=== PATIENT | male | born 1990 | race African-American/Black ===

== ENCOUNTER → 2017-02-20 | Day surgery (SDC) | payer MEDICAID ==
[2017-02-18 12:38] LABS: HEMATOCRIT 42.5 % (37.9-51.0); HEMOGLOBIN 14.3 g/dL (13.5-17.0); HGB HCT DIFFERENCE 0.4; MEAN CORPUSCULAR HEMOGLOBIN 30.3 pg (27.0-33.4); MEAN CORPUSCULAR HGB CONC 33.6 g/dL (32.0-36.0); MEAN CORPUSCULAR VOLUME 90 fl (80-97); RED BLOOD COUNT 4.72 10^6/uL (4.35-5.55); RED CELL DISTRIBUTION WIDTH 12.4 % (11.5-14.0); WHITE BLOOD COUNT 3.8 10^3/uL (4.0-10.5)
[~2017-02-20] MED LIST: ACETAMINOPHEN 0 ML IV ONE; ACETAMINOPHEN 325 MG TABLET PO PRN; BUPIVACAINE HCL 0.25 % INJ/PF (2.5 MG/1 ML) 30 ML VIAL ONE; BUPIVACAINE INJ/PF LIPOSOME/PF 266 MG/20 ML SDV ONE; CEFAZOLIN 1 GM/D5W RTU 1 GM/50 ML RTUPB IV PRN; HYDROMORPHONE HCL INJ/PF 2 MG/ML AMPULE ONE; LACTATED RINGERS 1000 ML IV PRN; LIDOCAINE 0.5% INJ-PF (5 MG/ML) 50 ML SDV SUBCUT PRN; MIDAZOLAM 2 MG/2 ML INJ ONE; PROPOFOL INJ 200 MG/20 ML VIAL IV ONE
[2017-02-20 14:44] VITALS: BP 107/67
== END ==
LOC: OROUT 14:17
PROVIDERS: ATTEND Surgery
DX: K40.90 Unilateral inguinal hernia, without obstruction or gangrene, not specified as recurrent (principal); Z53.9 Procedure and treatment not carried out, unspecified reason
CPT/HCPCS: 36415; 85027; J2250; J0690; J1170; S0020; C9290; J0131; J2704

== ENCOUNTER 2017-03-01 08:01 | Day surgery (SDC) | payer MEDICAID ==
[~2017-03-01 08:01] MED LIST changes: -ACETAMINOPHEN 0 ML IV ONE; -BUPIVACAINE HCL 0.25 % INJ/PF (2.5 MG/1 ML) 30 ML VIAL ONE; -BUPIVACAINE INJ/PF LIPOSOME/PF 266 MG/20 ML SDV ONE; -HYDROMORPHONE HCL INJ/PF 2 MG/ML AMPULE ONE; -MIDAZOLAM 2 MG/2 ML INJ ONE; -PROPOFOL INJ 200 MG/20 ML VIAL IV ONE
[2017-03-01] MEDS ORDERED: ALBUTEROL SULFATE 0.083% NEB 2.5 MG/3 ML AMPUL NEB ONE (08:59)
[2017-03-01] MEDS ORDERED: FENTANYL CITRATE INJ/PF 250 MCG/5 ML AMPULE ONE (09:55)
[2017-03-01] MEDS ORDERED: MIDAZOLAM 2 MG/2 ML INJ ONE (09:55)
[2017-03-01] MEDS ORDERED: PROPOFOL INJ 200 MG/20 ML VIAL IV ONE (09:56)
[2017-03-01] MEDS ORDERED: ACETAMINOPHEN 100 ML IV ONE (09:56)
[2017-03-01] MEDS ORDERED: MORPHINE SULFATE 10 MG/ML INJ ONE (09:56)
[2017-03-01] MEDS ORDERED: BUPIVACAINE HCL 0.25 % INJ/PF (2.5 MG/1 ML) 30 ML VIAL ONE (10:01)
[2017-03-01] MEDS ORDERED: BUPIVACAINE INJ/PF LIPOSOME/PF 266 MG/20 ML SDV ONE (10:01)
[2017-03-01] MEDS ORDERED: OXYCODONE-ACETAMINOPHEN 5-325 MG TABLET PO PRN ×3 (10:46→12:08)
[2017-03-01] MEDS ORDERED: FENTANYL CITRATE INJ/PF 100 MCG/2 ML AMPUL IV PRN ×3 (10:46)
[2017-03-01] MEDS ORDERED: MEPERIDINE HCL/PF INJ 25 MG/1 ML DISP.SYRIN IV PRN (10:46)
[2017-03-01] MEDS ORDERED: PROMETHAZINE HCL INJ 25 MG/1 ML VIAL IV PRN ×2 (10:46)
[2017-03-01] MEDS ORDERED: DIPHENHYDRAMINE HCL 50 MG/ML VIAL IV PRN (10:46)
[2017-03-01] MEDS ORDERED: MORPHINE SULFATE 10 MG/ML INJ IV PRN (10:46)
--- NOTE | 2017-03-01 11:59 | PDOC DISCHARGE SUMMARY ---
Discharge Summary (SDC) - Discharge Final Diagnosis: Right inguinal hernia, Date of Surgery: 03/01/17 Discharge Date: 03/01/17 Condition: Good Treatment or Instructions: [facility] [address], [place] [address] Discharge Instructions: Open Abdominal Procedures (Hernia) 1.General Information: a. DO NOT DRIVE a car or operative machinery for 1-2 weeks or as long as taking Narcotic pain medication. b. DO NOT consume alcohol, tranquilizers, sleeping medication, or any non- prescribed medication for 24 hours unless approved by your doctor or as long as taking pain medication. c. DO NOT make important decisions or sign any important papers for the first 24 hours after surgery. d. When discharged home the same day as surgery have a responsible person with you the first night. 2.Activity Restriction: 7-8 weeks; a. Avoid heavy lifting (> 10-15 lbs), straining abdominal muscles and sports, mowing lawn, vacuum cesspool cleaner and bending over a lot. b. Walking is important to avoid blood clots in the legs and deep breathing can prevent pneumonia. c. If it fine to go for walks, up and down steps, and ride in a car. 3.Treatment: a. You may remove dressing or Band-Aids the day after surgery and shower then daily is fine, but you should not bathe in a tub or go swimming for 2 weeks. b. If you have paper strips (steri strips) on the skin, do not remove them as they will fall off in the coming weeks. Pat them dry after your shower. Sutures beneath the paper strips dissolve. If you have skin sutures or metal selene they will be removed on your follow up visit. They may also get wet with a shower. c. Do not use oils, powders, or lotion on your incision. 4.Medications: a. You may take narcotic prescription tablets for pain if needed, one or two every 4 hours (percocet). b. Stop the narcotic when able since you cannot take it and drive and they cause constipation. You may switch to plain Tylenol, Advil, or Aleve as you transition from the narcotic. Many adults find good pain relief with Advil 600-800 mg three times a day with meal to work well and avoid narcotic use. High dose Advil should only be used for short courses since it can cause indigestion, ulcer bleeding in the stomach and kidney problems. c. You may resume all normal medications unless a change is specified by your doctors. d. a. If going home the same day as surgery start with clear liquids, and if you do well then advance to normal foods low inf fat and protein. Smaller portion size may be dowling the first night. b. When discharged after hospital stay you may resume a normal diet. 6.Notify Physician If: a. Pain is not relieved by pain medication b. Persistent nausea and vomiting c. Chills, fever (above 101) d. Persistent bleeding or swelling at the operative site e. Unable to urinate for 6-8 hours f. Increased redness, drainage, or foul smelling discharge from incision 7. Follow Up Care: a. Please call our office to schedule an appointment with your doctor for 2 weeks. In the event of any postoperative problems or questions you may call our office during business hours or the On-Call surgeon through the base filler operator at [facility]. [facility] [phone] [facility] [phone] (Ask for the surgeon english composition teacher) b. I understand the instructions for my postoperative care as described above and a copy has been given to me. _ Witness Patient/Significant Other Date Prescriptions: Oxycodone HCl/Acetaminophen [Percocet 2.5-325 Mg Tablet] 1 each PO Q6HP PRN #14 tablet PRN Reason: Discharge Diet: As Tolerated Discharge Activity: Energy Conservation, No Lifting Over 10 Pounds, No Lifting/ Push/Pulling Home Care Assistance: None Needed Report the Following to Your Physician Immediately: Shortness of Breath, Increase in Pain, Fever over 101 Degrees
--- NOTE | 2017-03-01 12:07 | Operative Report ---
Operative Report DATE OF SURGERY: 03/01/17 PREOPERATIVE DIAGNOSIS: Large right inguinal hernia, indirect, reducible POSTOPERATIVE DIAGNOSIS: Same OPERATION: 1. Right inguinal exploration. 2. Open Right inguinal herniorrhaphy with plug and overlay polypropylene mesh repair SURGEON: SHARRON HELMS ANESTHESIA: GA TISSUE REMOVED OR ALTERED: Hernia sac COMPLICATIONS: None ESTIMATED BLOOD LOSS: minimal INTRAOPERATIVE FINDINGS: See below PROCEDURE: The patient was seen in the preoperative holding area with a right inguinal area was marked. The patient was then taken to the operating room where general anesthesia was induced. The abdomen was exposed, prepped and draped in a sterile fashion in instrumentation set up for open right inguinal herniorrhaphy. Surgical plan and surgical time out conducted. The right inguinal area was marked with marker, skin anesthetized with quarter percent Marcaine. A 5 cm right inguinal herniorrhaphy incision was made with a knife. Subcutaneous tissue and superficial veins divided and cauterized as encountered. Franchesca's fascia anesthetized, divided, subcutaneous tissue divided , and external oblique aponeurosis exposed. Fascia was anesthetized, external oblique fibers opened sharply with knife and scissors. The ilioinguinal nerve identified and spared throughout the dissection. Contents of the inguinal canal analyzed. There were cremasteric muscle fibers stride which was swept aside. Around the bulk of the contents of the inguinal canal including cord structures and large adherent hernia sac. There was nothing in the hernia sac. It was dissected away from the cord structures and cremasteric fibers under excellent visualization in a methodical fashion. Sac was freed up distally, proximally it was taken all the way up to the level of its origination at the peritoneum. The sac, confirmed that there were no contents therein, and palpated the floor the inguinal canal which was still intact medially. The sac was twisted on its base and oversewn with a 0 Vicryl suture. The sac was amputated with cautery, no bleeding encountered, and the specimen sent off to pathology. Ligated stump of the peritoneum was allowed to retract into the retroperitoneal area. As Stated the floor of the canal medially was reasonably intact. We brought onto The field a Bard polypropylene mesh. We took the ascending and inserted it into the internal inguinal ring. This was secured to surrounding floor fascia with 0 PDS suture. The overlay mesh was secured to Poupart's ligament and conjoined tendon such that the 2 leaves of the were secured to the fascia laterally. Central opening permitted passage of the cord structures ; the ilioinguinal nerve was left in situ. Approximately 7 0 PDS sutures were used to secure the overlay mesh area the new internal ring was patulous and not too snug. We felt the operation was complete. External oblique aponeurosis and Franchesca's fascia closed with 203 0 Vicryl, skin closed with 3-0 Vicryl, and Dermabond glue. 20 mL of full strength exparel was injected into the subcutaneous tissues. Patient tolerated procedure well, extubated taken to recovery in stable condition.
[2017-03-01] MEDS ORDERED: ONDANSETRON HCL INJ/PF 4 MG/2 ML SDV ONE (13:38)
[2017-03-01] MEDS ORDERED: ROCURONIUM BROMIDE INJ 50 MG/5 ML VIAL IV ONE (13:38)
[2017-03-01] MEDS ORDERED: SUCCINYLCHOLINE CHLORIDE INJ 200 MG/10 ML VIAL ONE (13:38)
[2017-03-01] MEDS ORDERED: LIDOCAINE 2% INJ-PF (20 MG/ML) 10 ML AMPUL ONE (13:38)
[2017-03-01] MEDS ORDERED: METOCLOPRAMIDE HCL INJ/PF 10 MG/2 ML SDV ONE (13:38)
[2017-03-01] MEDS ORDERED: NEOSTIGMINE METHYLSULFATE 10 MG/10 ML VIAL ONE (13:38)
[2017-03-01] MEDS ORDERED: GLYCOPYRROLATE INJ 0.4 MG/2 ML VIAL ONE (13:38)
[2017-03-01 14:59] VITALS: BP 106/67
== END 2017-03-01 14:35 | disposition home or self-care (01) ==
LOC: OROUT 08:01
PROVIDERS: ATTEND Surgery
PROC: 0YU50JZ Supplement Right Inguinal Region with Synthetic Substitute, Open Approach (ICD-10-PCS; principal; 2017-03-01 10:00)
DX: K40.90 Unilateral inguinal hernia, without obstruction or gangrene, not specified as recurrent (principal); F17.210 Nicotine dependence, cigarettes, uncomplicated
CPT/HCPCS: 88302 ×2; 49505; C1781; J2250; J0690; J3490 ×3; J3010; J2765; J2270; J0330; J2405; S0020; J2704; J0131; C9290

== ENCOUNTER 2018-07-07 21:53 | Emergency (ER) | payer OTHER, MEDICAID ==
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
--- NOTE | 2018-07-07 23:50 | RADIOLOGY REPORT (SQ) ---
CT HEAD and CT Cervical Spine NON CONTRAST Clinical history: Trauma Technique: CT Head; Multiple axial images are taken from the level the vertex down to the base of the skull without the use of IV contrast. Sagittal and coronal reconstructed images are also performed. Exam was performed using the lowest radiation dose possible to allow for diagnostic images. CT Cervical Spine: Multiple axial images are taken of the cervical spine without the use of IV contrast. Images were then reconstructed in the sagittal and coronal planes. This exam was performed according to our departmental dose-optimization program which includes use of Automated Exposure Control, adjustment of the mA and/or kV according to patient size and/or use of iterative reconstruction technique. Comparison: None. Findings: CT Head: There is no evidence for acute intraparenchymal hemorrhage. There is no midline shift. There is no abnormal extra-axial fluid collection. Ventricles measure within normal limits. Sinuses are well aerated. Mastoid air cells well aerated. No evidence for depressed calvarial skull fracture. Soft tissues are grossly unremarkable. CT Cervical Spine: There is straightening of the cervical spine with loss of normal cervical lordosis. Vertebral body heights are maintained. Discs are within normal limits for age. The portions of the lung apices included in the field of view are grossly unremarkable. There is no evidence for acute fracture Prevertebral soft tissues measure within normal limits. The portions of the thyroid included in the [id number] are within normal limits. Impression: CT Head: No noncontrast CT evidence for acute intracranial pathology. CT Cervical Spine: 1. Straightening of the cervical spine with loss of normal cervical lordosis. This may be due to muscle spasm and/or cervical collar. 2. No CT evidence for acute fracture to the cervical spine. 3. If symptoms continue MRI may help better delineate.
[2018-07-08] MEDS ORDERED: CYCLOBENZAPRINE HCL 10 MG TABLET PO ONE (02:05)
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
[2018-07-08] MEDS ORDERED: KETOROLAC TROMETHAMINE 60 MG/2 ML SDV IM ONE (02:19)
[2018-07-08] MEDS ORDERED: DIPHENHYDRAMINE HCL 50 MG/ML VIAL IV ONE (02:20)
== END 2018-07-08 02:30 | disposition home or self-care (01) ==
LOC: ER 21:53
DX: S16.1XXA Strain of muscle, fascia and tendon at neck level, initial encounter (principal); V47.5XXA Car driver injured in collision with fixed or stationary object in traffic accident, initial encounter; F17.200 Nicotine dependence, unspecified, uncomplicated
CPT/HCPCS: 70450; 72125; 99284